=== PATIENT | female | born 1960 | race Caucasian/White ===

== ENCOUNTER → 2021-03-26 | Outpatient (CLI) | payer OTHER | LOC: SJCVCIMAG 08:45 | PROVIDERS: ATTEND Internal Medicine | DX: I07.1 Rheumatic tricuspid insufficiency (principal); I10 Essential (primary) hypertension; R00.0 Tachycardia, unspecified; E78.5 Hyperlipidemia, unspecified; E11.9 Type 2 diabetes mellitus without complications; Z79.84 Long term (current) use of oral hypoglycemic drugs; Z79.899 Other long term (current) drug therapy ==

== ENCOUNTER → 2021-04-15 | Outpatient (CLI) | payer OTHER ==
[~2021-04-15] VITALS: Ht 157.5 cm; Wt 74.8 kg
[~2021-04-15] MED LIST: ATENOLOL 25 MG25 M1 PO; ATORVASTATIN CA80 MG PO; LISINOPRIL20 MG PO; METFORMIN HCL500 M3 PO; PLAVIX 75 MG TA75 MG PO
[2021-04-15 10:14] VITALS: BP 117/59
--- NOTE | 2021-04-15 10:33 | EKG ---
[place] [address] [facility] [place] [address] ELECTROCARDIOGRAM REPORT Name: JACKCROW SHAH Room #: [facility] DAJUAN Milvia#: [id number] Admission: 04/15/21 Attend Phys: Griffin Krause Discharge: Date of : 62 Report #: [id number] [facility] Test Date: 2021-04-15 Test Time: 09:59:01 Pat Name: CROW SANTIAGO Department: Room: Gender: F Mask Design Engineer: SALVATORE : 1960 Requested By: Griffin Krause Order Number: [id number] MD: Tru Trujillo Measurements Intervals [place] Rate: 90 P: 49 ND: 169 QRS: 33 QRSD: 87 T: 3 QT: 360 QTc: 441 Interpretive Statements Sinus rhythm Probable left atrial enlargement Minimal ST elevation, anterolateral leads No previous ECG available for comparison Electronically Signed On 04-15-2021 10:33:41 CDT by Tru Trujillo [email or web address] <ELECTRONICALLY SIGNED> By: Tru Trujillo MD, [facility] 04/15/21 1033 0959 09 Tru Trujillo MD, FACC /EPI
[2021-04-15 10:40] LABS: HEMATOCRIT 41.1 % (37.0-47.0); HEMOGLOBIN 13.8 gm/dL (12.0-15.0); MCH 29.5 pg (26.0-34.0); MCHC 33.6 g/dL (28.0-37.0); MCV 87.9 fL (80.0-100.0); RBC 4.67 mil/uL (4.20-5.00); RDW 12.7 % (10.5-14.5); WBC 7.1 thou/uL (4.0-11.0)
[2021-04-15 10:47] LABS: CALCIUM 9.9 mg/dL (8.5-10.1); CREATININE 0.9 mg/dL (0.6-1.0); POTASSIUM 3.7 mmol/L (3.5-5.1)
--- NOTE | 2021-04-22 22:52 | CATHLAB ---
[facility] [place] [address] INVASIVE PROCEDURE REPORT Name: CROW SANTIAGO [id number] Admission: 04/15/21 Attend Phys: Griffin Krause Discharge: Date of : 62 Report #: [id number] THIS REPORT FOR: cc: Jeanie Bragg MD, Julie MD Lammoglia, Francisco J. MD ~ APPROVED REPORT Study performed: 04/15/2021 10:28:54 Patient Details Patient Status: Out-Patient Room #: The patient is a 60 year-old female Event Personnel Griffin Krause Automobile Racer, Taryn Son RTR, PROGRAM AIDE GROUP WORK Monitor, Obdulia Fowler RTR ScrubAvni Dexter RN program aide group work Performed Art Access - R femoral artery* Left Heart Cath w/or w/o Coronaries [id number] [facility] Hemostasis with Manual pressure 43352 Initial Mod Sed Same Phys/QHP [facility] [id number] 43949 Mod Sed Same Phys/QHP 114220, supervision of conscious sedation Indication Positive stress test Procedure Narrative The Right Groin^ was infiltrated with 1% Lidocaine subcutaneous anesthesia. A PINNACLE 4FR Sheath #[id number] sheath was inserted into the RFA^. Coronary angiography was performed using coronary diagnostic catheters. The right coronary system was accessed and visualized with a JR4 catheter. The left coronary system was accessed and visualized with a JL4 catheter. The left ventricle was accessed and visualized with a ANGLED PIGTAIL catheter. Left ventricular/Aortic Valve gradient assessed via catheter pullback. Hemostasis was obtained with manual pressure following sheath removal without any complications. The patient tolerated the procedure well and there were no complications associated with the procedure. There was no hematoma. Intraoperative Conscious Sedation Sedation start time: 11:10 Case end Time: [facility] [address] [place] [address] INVASIVE PROCEDURE REPORT Name: CROW SANTIAGO Room #: [facility]#: [id number] Admission: 04/15/21 Attend Phys: Griffin Parker Discharge: Date of : 62 Report #: [id number] 11:37 Versed 2 mg Fluoro Time: 2.30 minutes Dose: DAP 4139.40 cGycm2 672 mGy Contrast Type and Amount: Omnipaque 80 ml Coronary Angiography The patient's coronary anatomy is right dominant. Diagnostic Cath Left Main moderate caliber vessel of normal origin trifurcating into Left anterior descending, ramus intermedius and left circumflex ateries. It is without sigificant lesions. LAD Moderate caliber type II vessel which courses in anterior interventricular sulcus giving rise to septal and diagnoal branches free of significant lesions until the terminal portion where vessel is less than 0.5mm in diameter. this lesion is greater berger 75% Diagonal 1 dininuitive caliber vessel coursing along the anterolateral wall free of high grade disease Diagonal 2 insignificant caliber vessel Circumflex Moderate caliber vessel proceeding in the AV groove giving rise to a first marginal that course along the lateral aspect of the left ventricle and terminates as a smaller vessel without high grade lesions Right Coronary Moderate caliber dominant vessel with an inferior take-off giving rise to a small caliber rv branch. It then continues to the crux of the heart where moderate caliber PDA arises without significant lesions. the rca terminates as a posterolateral branch after two small size posterior wall branches R PDA moderate caliber without high grade lesions RPLV small to moderate size without significant lesions Ramus small caliber vesel free of any significant palaques Left Ventriculography Left Ventriculography was not performed. Hemodynamics The aortic pressure is 111/55 mmHg with a mean of 78 mmHg. The left ventricular pressure is 120/4 mmHg with a mean of mmHg. The left ventricular end diastolic pressure is 12 mmHg. Conclusion 1. Coronary Artery disease consisting of high grade terminal LAD lesion [facility] [address] [place] [address] INVASIVE PROCEDURE REPORT Name: JACKCROW Room #: [facility]#: [id number] Admission: 04/15/21 Attend Phys: Griffin Parker Discharge: Date of : 62 Report #: [id number] 2. Normal hemodynanics Recommendations Cardiac Risk Reduction Program Medical Therapy <ELECTRONICALLY SIGNED> By: Griffin Krause MD 04/22/212251 51 51 Griffin Krause MD /INF
== END | disposition home or self-care (01) ==
LOC: CATH 07:11
PROVIDERS: ATTEND Internal Medicine
DX: R94.39 Abnormal result of other cardiovascular function study (principal); I25.10 Atherosclerotic heart disease of native coronary artery without angina pectoris; I10 Essential (primary) hypertension; E11.9 Type 2 diabetes mellitus without complications; E78.5 Hyperlipidemia, unspecified; Z98.890 Other specified postprocedural states; Z79.899 Other long term (current) drug therapy; Z86.73 Personal history of transient ischemic attack (TIA), and cerebral infarction without residual deficits

== ENCOUNTER → 2021-11-18 | Outpatient (CLI) | payer OTHER | LOC: SJCVC 13:00 | PROVIDERS: ATTEND Internal Medicine | DX: R07.9 Chest pain, unspecified (principal); E78.5 Hyperlipidemia, unspecified; I25.10 Atherosclerotic heart disease of native coronary artery without angina pectoris; I10 Essential (primary) hypertension; E11.65 Type 2 diabetes mellitus with hyperglycemia; Z79.84 Long term (current) use of oral hypoglycemic drugs; Z79.899 Other long term (current) drug therapy; Z86.73 Personal history of transient ischemic attack (TIA), and cerebral infarction without residual deficits ==